=== PATIENT | female | born 1940 | race African-American/Black ===

== ENCOUNTER 2022-04-25 10:54 | Inpatient (IN) | payer OTHER, MEDICAID ==
[~2022-04-25] VITALS: Ht 170.2 cm; Wt 84.3 kg
[2022-04-25] MEDS ORDERED: ACETAMINOPHEN 500 MG TAB PO ONE (12:30)
[2022-04-25 12:45] LABS: Basophils # (auto) 0.1 10 ^3/uL (0-0.2); Basophils % (auto) 0.5 % (0.0-2.0); Eosinophils # (auto) 0 10 ^3/uL (0-0.8); Eosinophils % (auto) 0.2 % (0.0-7.0); Hematocrit 40.6 % (36.0-46.0); Hemoglobin 13.8 g/dL (12.2-16.2); Lymphocytes # (auto) 1.8 10 ^3/uL (0.4-5.4); Lymphocytes % (auto) 11.6 % (10.0-50.0); Mean Corpuscular Hemoglobin 30.3 pg (28.0-32.0); Mean Corpuscular Hgb Conc. 34.1 g/dL (32.0-36.0); Mean Corpuscular Volume 88.9 fL (80.0-100.0); Monocytes # (auto) 1.2 10 ^3/uL (0-1.3); Monocytes % (auto) 7.8 % (0.0-12.0); Neutrophils # (auto) 12.3 10 ^3/uL (1.6-8.6); Neutrophils % (auto) 79.9 % (37.0-80.0); Nucleated Red Blood Cells % 0.1 %; Red Blood Cells 4.56 10^6/uL (4.0-5.20); Red Cell Distribution Width 13.4 % (11.8-14.3); White Blood Cell 15.4 10^3/uL (4.4-10.8)
[2022-04-25] MEDS ORDERED: cloNIDine HCL 0.1 MG TAB PO ONE (12:45)
[2022-04-25 13:00] LABS: Albumin 3.8 g/dL (3.4-5.0)
[2022-04-25 13:05] LABS: Bilirubin, Total 0.4 mg/dL (0.2-1.0)
[2022-04-25] MEDS ORDERED: ASPirin 81 mg TAB PO ONE (13:15)
[2022-04-25 13:41] LABS: Urine Bacteria NONE SEEN /hpf (None Seen); Urine Blood TRACE /uL (Negative); Urine Specific Gravity 1.013 (1.001-1.035); Urine WBC 22 /hpf (0 - 5)
[2022-04-25] MEDS ORDERED: cefTRIAXone 1GM/50ML D5W 50 ML IV ONE ×2 (13:54→14:00)
[2022-04-25 17:28] LABS: Cholesterol 151 mg/dL (< 200)
[2022-04-25 17:30] LABS: HDL Cholesterol 65 mg/dL (40-59); LDL Cholesterol 76 mg/dL (< 100); Triglycerides 63 mg/dL (< 150)
[2022-04-25] MEDS: hydrALAZINE HCL 20 MG/ML VL IV PRN ×2 (17:40→23:44)
[2022-04-26] VITALS (8 sets, daily range): BP systolic 140–175; BP diastolic 59–79
[2022-04-26] MEDS ORDERED: ONDANSETRON HCL 4 MG/2 ML VIAL IV PRN (02:45)
[2022-04-26] MEDS: ACETAMINOPHEN 325 MG TAB PO PRN ×4 (03:01→20:33)
[2022-04-26] MEDS ORDERED: HYDR25TA4 PO (03:20)
[2022-04-26] MEDS ORDERED: CHOL-17 PO (03:20)
[2022-04-26] MEDS ORDERED: LAMO200T2 PO (03:20)
[2022-04-26] MEDS ORDERED: SIMV-13 PO (03:20)
[2022-04-26] MEDS ORDERED: LOSA-39 PO (03:20)
[2022-04-26] MEDS ORDERED: OLAN1TAB19 PO (03:20)
[2022-04-26] MEDS ORDERED: ASPI-543 PO (03:20)
[2022-04-26 05:57] LABS: Basophils # (auto) 0 10 ^3/uL (0-0.2); Basophils % (auto) 0.2 % (0.0-2.0); Eosinophils # (auto) 0 10 ^3/uL (0-0.8); Hematocrit 38.3 % (36.0-46.0); Hemoglobin 12.9 g/dL (12.2-16.2); Lymphocytes # (auto) 1.8 10 ^3/uL (0.4-5.4); Lymphocytes % (auto) 12.6 % (10.0-50.0); Mean Corpuscular Hemoglobin 30.3 pg (28.0-32.0); Mean Corpuscular Hgb Conc. 33.8 g/dL (32.0-36.0); Mean Corpuscular Volume 89.6 fL (80.0-100.0); Monocytes # (auto) 0.8 10 ^3/uL (0-1.3); Monocytes % (auto) 5.7 % (0.0-12.0); Neutrophils # (auto) 11.7 10 ^3/uL (1.6-8.6); Neutrophils % (auto) 81.5 % (37.0-80.0); Nucleated Red Blood Cells % 0.1 %; Red Blood Cells 4.27 10^6/uL (4.0-5.20); Red Cell Distribution Width 13.7 % (11.8-14.3); White Blood Cell 14.3 10^3/uL (4.4-10.8)
[2022-04-26 06:22] LABS: Albumin 3.3 g/dL (3.4-5.0); Calcium 9.7 mg/dL (8.5-10.1); Potassium 3.5 mmol/L (3.5-5.1)
[2022-04-26 06:27] LABS: BUN/Creatinine Ratio 13.5; Bilirubin, Total 0.5 mg/dL (0.2-1.0); Total Protein 7.2 g/dL (6.4-8.2)
[2022-04-26] MEDS: cefTRIAXone 1GM/50ML D5W 50 ML IV SCH (08:56)
[2022-04-26] MEDS: hydrALAZINE HCL 20 MG/ML VL IV PRN (12:22)
[2022-04-26] MEDS ORDERED: HCTZ 25 MG TAB PO ONE (13:45)
[2022-04-26] MEDS: LOSARTAN POTASSIUM 50 MG TAB PO SCH (15:17)
[2022-04-27 02:45] VITALS: BP 162/59
[2022-04-27] MEDS: hydrALAZINE HCL 20 MG/ML VL IV PRN ×2 (02:50→08:47)
[2022-04-27 05:00] VITALS: BP 126/51
[2022-04-27 06:28] LABS: Basophils # (auto) 0 10 ^3/uL (0-0.2); Basophils % (auto) 0.3 % (0.0-2.0); Eosinophils # (auto) 0.1 10 ^3/uL (0-0.8); Eosinophils % (auto) 0.8 % (0.0-7.0); Hemoglobin 13.2 g/dL (12.2-16.2); Lymphocytes # (auto) 2.2 10 ^3/uL (0.4-5.4); Lymphocytes % (auto) 20.8 % (10.0-50.0); Mean Corpuscular Hemoglobin 30.8 pg (28.0-32.0); Mean Corpuscular Hgb Conc. 34.7 g/dL (32.0-36.0); Mean Corpuscular Volume 88.9 fL (80.0-100.0); Monocytes # (auto) 1.2 10 ^3/uL (0-1.3); Monocytes % (auto) 11.7 % (0.0-12.0); Neutrophils % (auto) 66.4 % (37.0-80.0); Red Blood Cells 4.27 10^6/uL (4.0-5.20); Red Cell Distribution Width 13.4 % (11.8-14.3); White Blood Cell 10.5 10^3/uL (4.4-10.8)
[2022-04-27 06:44] LABS: Potassium 3.5 mmol/L (3.5-5.1)
[2022-04-27 06:50] LABS: BUN/Creatinine Ratio 19.5; Calcium 9.6 mg/dL (8.5-10.1)
[2022-04-27 06:54] LABS: Bilirubin, Total 0.4 mg/dL (0.2-1.0); Total Protein 6.5 g/dL (6.4-8.2)
[2022-04-27] MEDS: cefTRIAXone 1GM/50ML D5W 50 ML IV SCH (08:46)
[2022-04-27] MEDS: LOSARTAN POTASSIUM 50 MG TAB PO SCH (08:48)
[2022-04-27 09:00] VITALS: BP 153/63
[2022-04-27] MEDS ORDERED: LOSARTAN POTASSIUM 50 MG TAB PO SCH (10:00)
[2022-04-27] MEDS ORDERED: HCTZ 25 MG TAB PO SCH (10:00)
[2022-04-27 12:16] VITALS: BP 153/63
[2022-04-27 13:00] VITALS: BP 145/54
== END 2022-04-27 14:19 | disposition home or self-care (01) | DRG 78 ==
LOC: ER 10:54 → TELE 16:02 → TELE-WESTW 22:49
PROVIDERS: ADMIT Registered Nurse; ATTEND Internal Medicine
DX: I67.4 Hypertensive encephalopathy (principal); N39.0 Urinary tract infection, site not specified; I16.0 Hypertensive urgency; I12.9 Hypertensive chronic kidney disease with stage 1 through stage 4 chronic kidney disease, or unspecified chronic kidney disease; F31.9 Bipolar disorder, unspecified; N18.31 Chronic kidney disease, stage 3a; E11.22 Type 2 diabetes mellitus with diabetic chronic kidney disease; F17.200 Nicotine dependence, unspecified, uncomplicated; Z20.822 Contact with and (suspected) exposure to COVID-19; M50.30 Other cervical disc degeneration, unspecified cervical region; E78.00 Pure hypercholesterolemia, unspecified; E78.5 Hyperlipidemia, unspecified; Z79.899 Other long term (current) drug therapy; Z79.84 Long term (current) use of oral hypoglycemic drugs
CPT/HCPCS: 36415; 70450; 70551; 71045; 72040; 80053; 80061; 81001; 83036; 85025; 87086; 93005; 93306; 93886; 96365; G0378; J0696